=== PATIENT | male | born 1975 | race Caucasian/White ===

== ENCOUNTER 2022-12-24 22:05 | Emergency (ER) | payer OTHER ==
[2022-12-24] MEDS ORDERED: Bacitracin Oint 1 GM U/D Packet TOP ONE (22:21)
[2022-12-24] MEDS ORDERED: Lidocaine 1% 5 ML VIAL INJECT ONE (22:21)
[2022-12-24] MEDS ORDERED: Diphtheria,Pertussis(Acell),Tetanus Vaccine 0.5 ML Syringe IM ONE (22:35)
== END 2022-12-24 22:57 | disposition home or self-care (01) ==
LOC: JP.ED 22:05
DX: S80.251A Superficial foreign body, right knee, initial encounter (principal); Z23 Encounter for immunization; W45.8XXA Other foreign body or object entering through skin, initial encounter
CPT/HCPCS: 90471; 90715; 99283-25